=== PATIENT | male | born 1950 | race Caucasian/White ===

== ENCOUNTER → 2024-08-12 08:38 | Outpatient (REF) | payer MEDICARE, OTHER, SELFPAY | LOC: RAD 08:38 | PROVIDERS: ATTENDING PHYSICIAN Internal Medicine Cardiovascular Disease; FAMILY PHYSICIAN Internal Medicine; REFERRING PHYSICIAN Student in an Organized Health Care Education/Training Program | DX: I35.0 Nonrheumatic aortic (valve) stenosis (principal) | CPT/HCPCS: 74174; 75572; Q9967 ==

== ENCOUNTER 2024-08-28 11:38 | Day surgery (SDC) | payer MEDICARE, OTHER, SELFPAY ==
[2024-08-28] VITALS (9 sets, daily range): BP systolic 105–137; BP diastolic 57–87; BMI 28.6
[2024-08-28] MEDS: NSS 1000 IV (15:50)
--- NOTE | 2024-08-28 19:30 | ITS.CL.PN ---
[employer]aton Teacher - Procedure Note
Procedure
Procedure Note:
CARDIAC CATHETERIZATION REPORT
Date of Procedure: 08/28/2024
Referring: Dr. Hieu Marina MD
Indication: Symptomatic severe aortic stenosis
PROCEDURE(S)
1. right heart catheterization
2. coronary angiography
ACCESS
1. 6F right radial artery (closure: radial band)
2. 5F right antecubital vein (closure: manual hemostasis)
CATHETERS
1. 5F [place]
2. 6F AR1
3. 6F JL4
MODERATE SEDATION: 25 minutes of moderate sedation was utilized. An independent medical instrument technician was present to assist with and help manage the patient's level of consciousness and physiologic status.
HEMODYNAMIC DATA
AO 132/64 (mean 94) mmHg
RA 10 mmHg
RV 38/9 (EDP 14) mmHg
PA 30/13 (mean 20) mmHg
PCWP 14 mmHg
SaO2 94.7%
SvO2 73.8%
Hb 13.0 g/dL
CO/CI 7.21/3.38 L/min/m2
SVR 931 dsc*-5
PVR 0.8 Wood units
CORONARY ANGIOGRAPHY
Dominance: Right
LM: Large with minimal disease.
LAD: Large vessel giving rise to 3 moderate caliber diagonal branches. There is diffuse mild to moderate nonobstructive disease
LCx: Large vessel giving rise to a small OM1/ramus and large OM2. There is a long 30% stenosis in the proximal vessel extending into the OM2 and otherwise mild diffuse disease.
RCA: Large vessel giving rise to a moderate caliber RPDA, small RPL 1, and moderate caliber RPL 2. There is a focal 30% stenosis in the proximal vessel and otherwise diffuse mild disease.
RADIATION: dose 497 mGy; DAP 31 Gy*cm2; fluoroscopy time 10.8 min
CONCLUSIONS
1. Nonobstructive coronary artery disease in a right dominant system as described
2. Mildly elevated biventricular filling pressures, normal pulmonary artery pressure, and normal cardiac output
RECOMMENDATIONS
1. Proceed with TAVR workup
2. Aggressive secondary prevention of coronary artery disease
Copy to: Dr. Hieu Marina MD (theatrical rigger); Dr. Elmer Forrest MD (PCP)
Signed: Chance Vernon MD, PhD
== END 2024-08-28 18:30 | disposition home or self-care (01) ==
LOC: CATH 11:38
PROVIDERS: ATTENDING PHYSICIAN Student in an Organized Health Care Education/Training Program; FAMILY PHYSICIAN Internal Medicine; OTHER PHYSICIAN Internal Medicine Cardiovascular Disease
DX: I35.0 Nonrheumatic aortic (valve) stenosis (principal); I25.10 Atherosclerotic heart disease of native coronary artery without angina pectoris; J44.9 Chronic obstructive pulmonary disease, unspecified; E78.5 Hyperlipidemia, unspecified
CPT/HCPCS: 99152; 99153; 93456; C1769; C1894; Q9967

== ENCOUNTER 2024-10-23 07:18 | Inpatient (IN) | payer MEDICARE, OTHER, SELFPAY ==
--- NOTE | 2024-10-17 09:33 | HPS.HSE ---
Family Physician
-
Family Physician: Elmer Forrest
Chief Complaint
-
BRUCE with exertion
PreTAVR evaluation
History of Present Illness
Mr. Garcia is a very pleasant 73 yom with a past medical history notable for aortic stenosis, HTN, HLD, and CM. HIs most recent echocardiogram from 07/30/2024 is notable for EF 60%, AV P/M 97/72, MELINA 0.6-0.7, pk nathan. 4.91, trivial AI, mild MAC,
trivial TR, PAP 15. His CT scan from 08/12/2024 demonstrated a fusiformaneurysmal dilation of the ascending thoracic aorta measuring 4.6. Cardiac catheterization from 08/28/2024 showed nonobstructive CAD. From a symptomatology standpoint, patient
describes BRUCE with very steep inclines. He denies dizziness, lightheadedness, CP, or LE edema.�Reviewed the pathophysiology and treatment options of including SAVR and TAVR.�Explained the procedure and recovery time for both TAVR. Reviewed the
risks of the procedure including stroke, vascular injury, and PPM. CT scan shows an anatomy that would be amenable to TF TAVR utilizing a 29 mm S3 valve. Discussed patient with the heart team on 09/12/2024 and the team was agreeable to proceed with TF
TAVR.
Assessed patient in preadmission testing and confirmed medication list. 81 mg Aspirin daily will be initiated and he will continue including the morning of TAVR. He will hold his [place] starting 10/18/2024. Mr. Garcia will arrive to the [facility]
at 0730. Reviewed the risks of the procedure as discussed in consult with Dr. Hilliard. Allowed for and answered questions to the best of my ability.
Medical History
Past Medical History
Past Medical History: Reports HTN and Valvular Disease ()
Additional Past Medical History:
hyperlipidemia, BPH,, CM, Dupuytrens contracture
Past Surgical History: Reports Orthopedic (bilateral hand surgeries)
Social History
Tobacco: Non-smoker
Alcohol: Occasional
Drug: None
Personal:
Living: With Family
Family History
Family History: Other (stroke, COPD)
Allergies / Home Medications
Allergies reflects when Allergies were last updated in [employer] ([employer]
Ampicillin
Home Medications with original date entered in [employer] ([employer]
Centrum Silver 50+Men(Multiple Vitamins-Minerals) - Tablet as directed Orally
Crestor(Rosuvastatin Calcium) 20 MG Tablet 1 tablet Orally Once a day
Finasteride 5 MG Tablet Oral
Olmesartan Medoxomil-HCTZ 40-12.5 MG Tablet Oral
Castleton 3 1200 MG Capsule 1 capsule Orally Once a day
Allergy/Medication List:
ampicillin
Review of Systems
-
A 12 point ROS was completed and negative except as noted: Yes
Respiratory: Reports Other (BRUCE with steep inclines)
Physical Exam
Physical Exam
General: Well Developed, Well Nourished and No Apparent Distress
HEENT: NormoCephalic
Respiratory: Clear
Cardiac: Regular Rhythm and Murmur (IV/ FERMÍN)
Breast: Deferred by me
GI: Soft, Non Tender and Non Distended
Rectal: Deferred by Provider
Genito-urinary: Deferred by me
Skin: Warm and Dry
Neuro: Awake, Alert and Oriented
Psych: Calm
Data Reviewed
-
Diagnostic Radiology: Report Reviewed by me
CT Scan: Report Reviewed by me and Discussed with Physician (TAVR cT scan reviewed with the heart team)
Medical Tests (Nuc Med, Echo, EKG etc): Report Reviewed by me and Discussed with Physician (reviewed echocardiogram and cardiac catheterization with the heart team)
Lab Data: Labs Reviewed by me
Old Records: Reviewed
Impression/Plan
-
IMPRESSION/PLAN:
Aortic Stenosis
TF TAVR planned with Drs. Vernon and Babak utilizing a 29 mm S3
Initiate 81 mg aspirin daily and continue including morning of TAVR
Hold fish oil starting 10/18/2024
POD#1/#30 echocardiogram
Cardiac rehab consult
Labs
-
Labs:
WBC 6.6 10^3/uL (4.8-10.8) 10/17/24 10:25
RBC 4.46 10^6/uL (4.70-6.10) L 10/17/24 10:25
Hgb 14.3 g/dL (13.0-18.0) 10/17/24 10:25
Hct 41.7 % (39.0-52.0) 10/17/24 10:25
Plt Count 146 10^3/uL (130-400) 10/17/24 10:25
Sodium 140 mmol/L (135-145) 10/17/24 10:25
Potassium 4.1 mmol/L (3.5-5.1) 10/17/24 10:25
Chloride 104 mmol/L (98-107) 10/17/24 10:25
Carbon Dioxide 29 mmol/L (22-30) 10/17/24 10:25
BUN 27 mg/dl (9-20) H 10/17/24 10:25
Creatinine 1.3 mg/dL (0.7-1.3) 10/17/24 10:25
eGFR 56.93 10/17/24 10:25
Glucose 111 mg/dl (70-99) H 10/17/24 10:25
Calcium 10.0 mg/dl (8.4-10.2) 10/17/24 10:25
Hjy-K-Youhbvgbbgt Pept 1130 pg/ml 10/17/24 10:25
Albumin 5.0 g/dl (3.5-5.0) 10/17/24 10:25
[2024-10-17 10:15] VITALS: BMI 29.8
[2024-10-17 11:06] LABS: Urine Character Clear (Clear)
[2024-10-17 11:07] LABS: INR 0.97; PT 13.2 Sec (11.4-14.6)
[2024-10-17 11:16] LABS: Hematocrit 41.7 % (39.0-52.0); Hemoglobin 14.3 g/dL (13.0-18.0); Mean Corp Hgb Conc. 34.3 g/dL (33.0-37.0); Mean Corpuscular Volume 93.5 fL (80.0-94.0); Nucleated Red Blood Cells % 0 % (-); Platelet Count 146 10^3/uL (130-400); Red Cell Dist. Width 12.5 % (11.5-14.5)
--- NOTE | 2024-10-17 11:16 | CM ---
Chart reviewed. Met with the patient and his in PAT. Reviewed preoperative and postoperative instructions and restrictions, along with showering guidelines. Gave patient 2 soaps and TAVR Book. Patient is agreeable to a home visit by CT
Transitional RN. Patient is independent of ADLS, lives with his in a 1 STH, 0 TRICIA, 0 DME. Plan is for the patient to return home with CT Transitional RN.
[2024-10-17 11:20] LABS: Urine Red Blood Cell 0-2 /HPF (0-2); Urine Squamous Cell 0-2 /LPF (Few); Urine White Cell 0-2 /HPF (0-5)
[2024-10-17 11:22] LABS: ALT (SGPT) 24 U/L (0-50); AST (SGOT) 34 U/L (17-59); Albumin 5.0 g/dl (3.5-5.0); Alkaline Phosphatase 52 U/L (38-126); Blood Urea Nitrogen 27 mg/dl (9-20); Calcium 10.0 mg/dl (8.4-10.2); Carbon Dioxide 29 mmol/L (22-30); Chloride 104 mmol/L (98-107); Estimated Creatinine Clearance 49 ml/min; Glucose 111 mg/dl (70-99); Potassium 4.1 mmol/L (3.5-5.1); Sodium 140 mmol/L (135-145); Total Protein 7.7 g/dl (6.3-8.2); eGFR 56.93
[2024-10-17 11:29] LABS: Glycohemoglobin (HgbA1c) 5.7 % (4.0-5.6)
[2024-10-23] VITALS (22 sets, daily range): BP systolic 100–143; BP diastolic 55–98
[2024-10-23] MEDS: VANCOCIN 530 MG IV (09:16)
[2024-10-23] MEDS: VANCOCIN IV (09:30)
--- NOTE | 2024-10-23 09:31 | W.CVOR.SURPR ---
CVOR Surgeon Immed Pre Op
-
I have examined this patient prior to performance of the scheduled procedure.
The patient's condition is unchanged from the time of the dictated/written History and
Physical and the patient is able to undergo the scheduled procedure.
[2024-10-23] MEDS: AZACTAM 2000 MG IV (10:09)
--- NOTE | 2024-10-23 11:38 | W.IMMPOSTOP ---
Surgical Immed Post Op Note
-
[id number]
STRUCTURAL HEART PROCEDURE NOTE: TAVR
Preoperative Dx:
[id number] (P/M: 97/72, MELINA 0.6, trivial AI)
Mild MAC w/o MS/MR
HTN/HLD
BPH
Dupuytrens contracture
Postoperative Dx:
Same
Procedures:
1) L CFV access w/ U/S and fluoroscopic guidance, Seldinger technique, long-6Fr sheath placement
2) L MANAGER BANK access w/ tactile, U/S, and fluoroscopic guidance, Seldinger technique, long-6Fr sheath placement
3) R MANAGER BANK access w/ tactile, U/S, and fluoroscopic guidance, Seldinger technique, 8Fr dilator placement, limited angiography
4) Perclose placement x 2 to R MANAGER BANK, 8Fr sheath placement
5) Placement of temporary pacing wire w/ threshold testing
6) Placement of pigtail catheter in RCC w/ limited aortography & confirmation of co-planar valve deployment angles
7) Placement of Hall E-sheath (systemic heparinization)
8) Wire purchase across stenotic AV (AL-1, soft-tip straight, LVEDP assessment (14mmHg), extra-stiff)
9) Pre-TAVR BAV
10) R TF TAVR w/ placement of 29mm AUDIE 3 RESILIA
11) Completion aortography
12) Completion TTE (mean gradient 6mmHg, no AI/PVL)
13) Removal of qolfl-fsjidayt-ylhogm/Hall E-sheath w/ R MANAGER BANK mgmt w/ perclose sutures x 2; manual pressure
14) Completion R ileofemoral angiography
15) Removal of temporary pacing wire
16) Limited angiography of L MANAGER BANK
17) Removal of L MANAGER BANK 6Fr sheath w/ mgmt w/ 6Fr angioseal x 1; manual pressure
18) Removal of L CFV sheath
Vision Impaired Teacher:
Dr. Chance Vernon
Cardiac Surgeon:
Dr. Mingo Hilliard
Anesthesia:
MAC & local to B/L groins
Implants:
Hall [employer], 29mm AUDEI 3 RESILA; SN: [id number]
Perclose x 2 to R MANAGER BANK
6Fr angioseal x 1 to L MANAGER BANK
Cath Data:
Start: 1040hrs, Deploy: 1120hrs, End: 1135hrs
FT: 14.6min, mGy: 311, DAP: 41.5, Contrast: 83mL
Post-TTE: mean gradient 6mmHg, no AI/PVL
Complications:
None
Condition:
Stable/guarded to recovery
[2024-10-23] MEDS: AZACTAM IV (12:41)
[2024-10-23] MEDS: LEVOPHED 250 IV (12:42)
--- NOTE | 2024-10-23 14:07 | CM ---
CM following for DC planning needs.
Patient in OR today for planned TAVR procedure.
Reviewed initial assessment. Patient is independent of ADLS, lives with his in a 1 STH, 0 TRICIA, 0 DME.
Anticipated DC plan is for home w/ CT Transitional Care RN.
CM to follow.
--- NOTE | 2024-10-23 17:52 | ITS.CL.PN ---
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
Procedure
Procedure Note:
TRANSCATHETER AORTIC VALVE REPLACEMENT REPORT
Date of Procedure: 10/23/2024
Referring: Dr. Hieu Marina MD
Indication: Symptomatic severe aortic valve stenosis
Operators: Chance Vernon MD, PhD (interventional cardiology); Mingo Hilliard MD (CT surgery)
Anesthesia: conscious sedation provided by the anesthesia staff
PROCEDURE: transfemoral, transcatheter aortic valve replacement with a Hall AUDIE 3 Ultra RESILIA 29 mm transcatheter aortic valve
ACCESS:
1. 6F left femoral vein (closure: manual hemostasis) - Ultrasound was utilized for vascular access. The vessel was visualized under ultrasound and noted to be patent. An image of the vessel was stored permanently in the patient's medical record.
Under direct ultrasound guidance, vascular access was obtained using a modified Seldinger technique and a 6 [place] sheath was placed.
2. 6F left common femoral artery (closure: Angioseal) - Ultrasound was utilized for vascular access. The vessel was visualized under ultrasound and noted to be patent. An image of the vessel was stored permanently in the patient's medical record.
Under direct ultrasound guidance, vascular access was obtained using a modified Seldinger technique and a 6 [place] sheath was placed.
3. 16 F right common femoral artery (closure: Perclose x2) - Ultrasound was utilized for vascular access. The vessel was visualized under ultrasound and noted to be patent. An image of the vessel was stored permanently in the patient's medical
record. Under direct ultrasound guidance, vascular access was obtained using a modified Seldinger technique and a 8 [place] sheath was placed.
HEMODYNAMIC DATA
LVEDP 14 mmHg
PROCEDURE NARRATIVE:
The patient was prepped and draped in standard sterile fashion. Conscious sedation was provided by the anesthesia staff. 6F left femoral vein and left common femoral artery access was obtained with ultrasound guidance using micropuncture technique
with verification of appropriate arteriotomy location via hand injection angiography. A temporary venous pacing wire was advanced via the left femoral vein to the right ventricle under fluoroscopic guidance with appropriate capture verified. A 5F
pigtail catheter was advanced via the left common femoral artery and seated in the right coronary cusp. Angiography was performed to verify the co-planar angle.
8F right common femoral artery access was obtained with ultrasound guidance using micropuncture technique with verification of appropriate arteriotomy location via hand injection angiography. The arteriotomy was preclosed with two Perclose sutures
followed by replacement of the 8F sheath. Using an AL1 catheter, an Amplatz Extrastiff wire was placed in the descending thoracic aorta. The 8F sheath was removed and the 16 F Hall E-sheath was inserted over the Extrastiff wire and into the
descending aorta. Heparin was given. The AL1 catheter was re-advanced through the E-sheath to the level of the ascending aorta. The Extrastiff wire was exchanged for a soft tipped straight wire which was used to cross the aortic valve and deposit
the AL1 in the LV apex. A J-wire was used to exchange the AL1 for a pigtail catheter in the LV and LVEDP was measured. An Amplatz Extrastiff wire with curved proximal end was advanced through the pigtail catheter and seated in the LV apex. ACT was
checked and confirmed to be >300 seconds.
The valve was brought to the table with orientation and deployment contrast volume verified. The valve was advanced over the Extrastiff wire and into the descending aorta. The balloon was withdrawn, and the valve was mounted on the balloon. The
valve was advanced over the aortic arch and into the aortic valve annulus. The pusher device was withdrawn. Low volume aortography confirmed valve positioning. The valve was deployed during rapid ventricular pacing. The balloon was walked back to
the descending aorta while leaving the wire in place. The patient was resuscitated by anesthesia with recovery of adequate blood pressure. Telemetry demonstrating normal sinus rhythm. Aortography demonstrated good valve positioning, adequate
coronary filling, and no aortic valve insufficiency. Echocardiography confirmed no aortic insufficiency. Mean valve gradient was 6 mmHg. The valve deployment system was removed.
The Hall E sheath was removed, and hemostasis obtained with the two Perclose sutures. Protamine 40 mg was given. Aortoiliac angiography demonstrated no evidence of iliofemoral dissection/perforation and good runoff below the common femoral artery
bilaterally. The pacemaker and the pigtail catheter were removed. The left femoral artery sheath was removed using a 6F Angioseal. The left femoral venous sheath was removed with manual pressure.
CONCLUSIONS
1. successful placement of a Hall AUDIE 3 Ultra RESILIA 29 mm transcatheter aortic valve via right transfemoral approach with no acute complications
2. acute on chronic systolic heart failure with elevated filling pressures (LVEDP = 14)
Copy to: Dr. Hieu Marina MD (senior supply chain analyst); Dr. Elmer Forrest MD (PCP)
Signed: Chance Vernon MD, PhD
--- NOTE | 2024-10-23 19:34 | PTCARENOTE ---
Pt received from recovery area post TAVR. Pt denied any discomfort. Neuro assessment at pt's baseline. Bilateral groin sites with dry and intact dressings, no sign of bleeding or hematoma. Pt OOB with assist of one, voiding without difficulty.
Telemetry shows sinus rhythm. Plan for ECHO in am.
--- NOTE | 2024-10-23 20:43 | PTCARENOTE ---
assumed care of patient at the change of shift. AAOx3. neuro intact. resting comfortably in bed. denies any pain/sob. SR on tele 70s-80s. bp stable. b/l groin sites intact/soft. + pulses. reviewed plan of care with patient and verbalized
understanding. ambulating to the BR with a standby assist. urinating with no issues. call huston within reach. makes needs known.
[2024-10-23] MEDS: CRESTOR 20 MG PO (22:46)
[2024-10-24 03:43] VITALS: BP 121/90
[2024-10-24 04:02] LABS: Hematocrit 38.7 % (39.0-52.0); Hemoglobin 13.4 g/dL (13.0-18.0); Mean Corp Hgb Conc. 34.6 g/dL (33.0-37.0); Mean Corpuscular Volume 93.9 fL (80.0-94.0); Platelet Count 109 10^3/uL (130-400); Red Cell Dist. Width 12.5 % (11.5-14.5)
[2024-10-24 04:10] VITALS: BMI 29.4
[2024-10-24 04:22] LABS: Blood Urea Nitrogen 28 mg/dl (9-20); Calcium 9.4 mg/dl (8.4-10.2); Carbon Dioxide 27 mmol/L (22-30); Chloride 106 mmol/L (98-107); Estimated Creatinine Clearance 49 ml/min; Glucose 122 mg/dl (70-99); Potassium 4.4 mmol/L (3.5-5.1); Sodium 138 mmol/L (135-145); eGFR 56.93
[2024-10-24 05:22] LABS: Hepatitis C Antibody Negative (Negative)
--- NOTE | 2024-10-24 06:21 | W.PN.CT ---
Today's Communication / Plan
-
-pod #1
-no issues overnight
-nsr 60s. No significant kylah or pauses
-Echo today
-current meds (ASA, Crestor, Benicar, HCTZ, Proscar)
-encourage IS, OOB
-possible d/c
Assessment / Plan
-
- Severe symptomatic - s/p Pre-TAVR BAV followed by R TF TAVR w/ placement of 29mm AUDIE 3 RESILIA on 10/23/24, pod #1
- Post-TTE: mean gradient 6mmHg, no AI/PVL
- LVEDP assessment 14mmHg
- Mild MAC w/o MS/MR
- HTN/HLD
- Non-obstructive CAD
- EF 65%
- BPH
- Dupuytren's contracture
- Inguinal hernia
Discussed patient care with: Nursing and Care Team
Subjective
-
Date of Service: October 23, 2024
Objective Data
-
Lab Results
10/17/24 10:25
10/17/24 10:25
PT 13.2 Sec (11.4-14.6) 10/17/24 10:25
INR 0.97 10/17/24 10:25
Vital Signs
Vital Signs
Temp Pulse Resp BP Pulse Ox
98.1 F 77 20 100/60 94
10/23/24 19:45 10/23/24 19:45 10/23/24 15:26 10/23/24 19:21 10/23/24 19:45
CT Intake/Output/Weight
10/23/24 10/23/24 10/24/24
06:59 18:59 06:59
Intake Total 1120 / 1120
Balance 1120 / 1120
SaO2: 94
Physical Exam
-
General: Awake and AOx3
Cardiovascular: Regular rate & rhythm, No Murmurs and No Rub
Respiratory: Clear
Incision: Other (groins are cdi, soft, nontender, no hematoma b/l)
Extremities: No Edema
Abdomen: soft, nontender, nondistended, + bowel sounds b/l
Data Reviewed
-
Lab Results: Results Reviewed
Medications: Active Meds Reviewed
Chest X-Ray: Report Reviewed and Image Reviewed
ECG: Report Reviewed and Image Reviewed
[2024-10-24 07:59] LABS: ACT-LR - POC 311 Seconds (116-155)
[2024-10-24 08:12] VITALS: BP 126/62
--- NOTE | 2024-10-24 08:39 | W.PN.CD ---
Today's Communication / Plan
-
- Cath sites fine
- Stable on telemetry
- Await echo
-If the above remains stable then probable discharge later today
Impression / Plan
-
74-year-old male with history of aortic stenosis, hypertension and hypercholesterolemia status post Hall AUDIE 3 Ultra RESILIA 29 mm yesterday.
.
Hall AUDIE 3 Ultra RESILIA 29 mm
- Cath sites fine
- Stable on telemetry
- Await echo
.
Hypertension. Stable
.
Hypercholesterolemia statin.
Physical Exam
Vital Signs/Labs
Vital Signs
Temp Pulse Resp BP Pulse Ox
98.7 F 62 20 121/90 97
10/24/24 08:12 10/24/24 06:00 10/24/24 08:12 10/24/24 03:43 10/24/24 08:12
10/23/24 10/24/24 10/25/24
06:59 06:59 06:59
Actual Weight 91.7 kg
10/24/24 03:44
10/24/24 03:44
PT 13.2 Sec (11.4-14.6) 10/17/24 10:25
INR 0.97 10/17/24 10:25
10/17/24
10:25
Dvw-X-Cgydxprtlwa Pept 1130
Physical Exam
Constitutional: No acute distress
EENT: Anicteric
Cardiovascular: Rhythm & rate is regular
Respiratory: Lungs clear to auscul. and Crackles Absent
GI: Soft
Neuro/Psych: Alert
Other: Other (Bilateral cath sites are fine)
Data Reviewed
-
Date of Service: October 24, 2024
Medical Decision Making: Reviewed Test Results
X-Ray/CT/US/MRI/NUC/PET: Report Reviewed by me
Medical Tests (PFT, Pathology etc): Report Reviewed by me
Labs: Labs Reviewed by me
--- NOTE | 2024-10-24 08:51 | W.DCSUMMARY ---
Discharge Summary
Discharge Data
Date of Admission: 10/23/24
Date of Discharge: 10/24/24
-
Pending Results: No
Hospital Course
Primary care physician: Elmer Forrest
Outpatient java security engineer: Hieu Marina
Inpatient consultants: [facility] cardiology
Procedures:
1. 10/23/24 Right transfemoral TAVR #29mm Hall S3 Resilia by Drs. Hilliard & Janeen
Primary Diagnosis:
1. severe aortic stenosis
Secondary Diagnoses:
1. hypertension
2. hyperlipidemia
3. BPH
4. hx dupuytren's contracture
5. L inguinal hernia
HPI: Patient is a 74-year-old male with known aortic stent stenosis that has been followed as an outpatient for some time now. Most recent echo demonstrates no critical with peak and mean gradients of 97/72 mmHg respectively. He has therefore
been referred for evaluation for TAVR. After all preop workup was completed he was deemed suitable cannot undergo the procedure.
Hospital course: Patient was brought in electively on 10/23/2024 where he underwent an uncomplicated right transfemoral TAVR with a #29 Hall S3 Resilia valve. Postop EKG demonstrated sinus bradycardia. He remained stable overnight, groins are
intact without hematoma. On postop day 1 he remained sinus rhythm. Follow-up echo demonstrates a well-seated TAVR valve with a mean gradient of 10 mmHg and no AI. He ambulated with cardiac rehab and is ready for discharge to home.
Home medication changes: none
Discharge Plan
-
Patient Disposition: Home (Routine Discharge)
Discharge Diagnosis/Procedures: TF TAVR
Condition: Good
Diet: Low Fat, Low Cholesterol and 2 Gram Sodium
Activity: As tolerated
Driving Restrictions: No driving for 1 week
Bathing Restrictions: OK to Shower
Others Tests: 30 day follow up echocardiogram: 11/25/2024 @ 1:20pm at the [facility]
Other Services: Cardiac Rehab
Wound Care: No lotions, powders, or creams to puncture sites
Specialty Instructions: Weigh Daily- Call MD for wt gain/loss 3 lbs overnight/5 lbs in 1 week
Activity Restrictions/Additional Instructions:
Please call to make appointments for Phase II Cardiac Rehab:
1) [facility]: [phone]
2) [facility]: [phone]
3) [facility]: [phone]
4) [facility]- [phone]
Stand Alone Forms: DC Inst - TransFemoral (TAVR)
Referrals:
CT Transitional Care Nurse [Outside]
Referral Note: The Cardiothoracic Transitional Care Nurse will call you to set up a visit in 1-2 days.
Smiley Patel CRNP [Specified Professional Personl, Cardiology] - 12/02/24 11:00 am
Elmer Forrest MD [Family Provider, Internal Medicine]
Prescriptions:
New
acetaminophen 325 mg Tablet
650 mg PO Q6HPRN PRN (Reason: LEAL, mild pain, or fever >101F) Qty: 0 0RF
Continued
omega-3 fatty acids Capsule
2 mg PO DAILY
olmesartan-hydrochlorothiazide 40-12.5 mg Tablet
1 tab PO DAILY
aspirin 81 mg Tablet
81 mg PO DAILY Qty: 0 0RF
finasteride 5 mg Tablet
5 mg PO DAILY Qty: 0 0RF
rosuvastatin 20 mg Tablet
20 mg PO HS Qty: 0 0RF
Centrum Silver Men 088-49-125-300 mcg Tablet
1 tab PO DAILY Qty: 0 0RF
Discharge Orders:
Discharge Patient (As Directed); Ordered 10/24/24
Ordered By: Suly Anguiano
Care Plan Goals
Care Plan Goals:
Problem: Readiness for enhanced knowledge related to diagnosis and treatment plan
Goal: Understand your diagnosis and treatment plan needs, including medications if applicable.
Instructions: Know your diagnosis, underlying causes and treatment plan options, including medications if applicable. Consult with your health care team to learn about your diagnosis and treatment plan, including medications if applicable.
Discharge Date and Time
Print Language: [place]
[2024-10-24] MEDS: ORETIC 12.5 MG PO (09:29)
[2024-10-24] MEDS: BENICAR 40 MG PO (09:29)
[2024-10-24] MEDS: LOW STRENGTH ASPIRIN 81 MG PO (09:30)
[2024-10-24] MEDS: PROSCAR 5 MG PO (09:30)
[2024-10-24] MEDS: VANCOCIN 200 IV (09:50)
[2024-10-24 11:16] VITALS: BP 138/63
[2024-10-24 11:47] VITALS: BP 145/73
[2024-10-24 11:53] VITALS: BP 140/67
[2024-10-24 12:00] VITALS: BP 140/67; BP 145/73; PULSE 67; O2SAT 100
--- NOTE | 2024-10-24 13:04 | PTCARENOTE ---
Pt denies any discomfort, walked in halls with Cardiac Rehab. Pt seen by . Echo done. Telemetry and IV devices removed. Discharge instructions reviewed with pt and his and daughter regarding activity and driving guidelines, wound
care, medications and their possible side effects, report ing cares and concerns and follow up appointments and ECHO. Very good understanding verbalized. Pt escorted out via wheelchair and discharged to home.
--- NOTE | 2024-10-24 13:05 | W.PN.ANS.POP ---
Anesthesia Post Operative
- Anesthesia Post Op Note
Vital Signs Stable-See Nursing Note: Yes
Airway Patent: Yes
Adequate Pain Control: Yes
Change in Mental Status: No
Current Postoperative Nausea & Vomiting: No
Anesthesia Complications: No
General Anesthetic Recall: No
Unplanned Admission: No
Post Op Hydration Adequate: Yes
== END 2024-10-24 12:48 | disposition home or self-care (01) | DRG 266 ==
LOC: IVU 07:18
PROVIDERS: Physician Assistant Medical; ADMITTING PHYSICIAN Thoracic Surgery (Cardiothoracic Vascular Surgery); CONSULT PHYSICIAN Student in an Organized Health Care Education/Training Program; FAMILY PHYSICIAN Internal Medicine
PROC: 02RF38Z Replacement of Aortic Valve with Zooplastic Tissue, Percutaneous Approach (ICD-10-PCS; 2024-10-23)
DX: I35.0 Nonrheumatic aortic (valve) stenosis (principal); Z00.6 Encounter for examination for normal comparison and control in clinical research program; I50.23 Acute on chronic systolic (congestive) heart failure; E78.5 Hyperlipidemia, unspecified; I11.0 Hypertensive heart disease with heart failure; N40.0 Benign prostatic hyperplasia without lower urinary tract symptoms; M72.0 Palmar fascial fibromatosis [Dupuytren]; R00.1 Bradycardia, unspecified; I77.810 Thoracic aortic ectasia; I25.10 Atherosclerotic heart disease of native coronary artery without angina pectoris; K40.90 Unilateral inguinal hernia, without obstruction or gangrene, not specified as recurrent
CPT/HCPCS: 33361; 36415; 71045; 71046; 80048; 80053; 81003; 81015; 82248; 83036; 83880; 85025; 85027; 85347; 85610; 86803; 86850; 86900; 86901; 86920; 87070; 93005; 93308; 93321; 93325; C1760; C1769; C1894; Q9967